=== PATIENT | male | born 1950 | race Caucasian/White ===

== ENCOUNTER 2021-03-27 01:03 | Emergency (ER) | payer OTHER, SELFPAY ==
[~2021-03-27] VITALS: Ht 170.2 cm; Wt 70.3 kg
[2021-03-27 01:14] VITALS: BP 188/76
--- NOTE | 2021-03-27 01:15 | NUR ---
biba to bed 3
--- NOTE | 2021-03-27 01:15 | NUR ---
PT BIBA FROM HOME FOR C/C GENERALIZED WEAKNESS AND HAS NOT EATEN IN 4 DAYS. PT REPORTS "I JUST DONT HAVE ENERGY TO EAT." REPORTS STRESS AT HOME. DENIES DEPRESSION. DENIES CP, SOB, FEVER, CHILLS, N/V/D. PT IS ABLE TO AMBULATE WITH ASSIST. A & O X4. MED HX: DENIES ALLERGIES: NKA
[2021-03-27] MEDS ORDERED: NACL 0.9% 1,000 ML IV ONE (01:25)
--- NOTE | 2021-03-27 01:25 | NUR ---
JARAD OF NARES COLLECTED AND GIVEN TO JEFF SENIOR ATTORNEY, AT BEDSIDE.
--- NOTE | 2021-03-27 01:30 | NUR ---
NOVEL COVID COLLECTED AND GIVEN TO SABINA AGUILAR TECH.
[2021-03-27 01:38] LABS: BASOPHILS # (AUTO) 0.1 K/uL (0.00-0.22); EOSINOPHILS # (AUTO) 0.2 K/uL (0-0.4); EOSINOPHILS % (AUTO) 1.5 % (0.0-4.0); HEMATOCRIT 50.6 % (36-52); HEMOGLOBIN 17.7 g/dL (12.0-18.0); LYMPHOCYTES # (AUTO) 2.8 K/uL (2.0-11.5); LYMPHOCYTES % (AUTO) 20.3 % (20.5-51.1); MEAN CORPUSCULAR HEMOGLOBIN 32 pg (27-31); MEAN CORPUSCULAR HGB CONC 35 g/dL (33-37); MEAN CORPUSCULAR VOLUME 90.6 fL (80-94); MONOCYTES % (AUTO) 7.2 % (1.7-9.3); NEUTROPHILS # (AUTO) 9.5 K/uL (1.8-7.7); PLATELET COUNT (AUTO) 190 K/uL (140-450); RED BLOOD CELL COUNT(AUTO) 5.59 MIL/uL (4.20-6.10); WHITE BLOOD COUNT (AUTO) 13.6 K/uL (4.8-10.8)
--- NOTE | 2021-03-27 01:45 | NUR ---
XRAY AT BEDSIDE.
--- NOTE | 2021-03-27 02:00 | NUR ---
JUICE PROVIDED FOR PATIENT. TOLERATED WELL. DENIES N/V. DENIES FOOD WHEN OFFERRED.
[2021-03-27 02:05] LABS: ALBUMIN 4.1 g/dL (3.4-5.0); ANION GAP 13.6 (8-16); ASPARTATE AMINOTRANSFERASE 20 U/L (15-37); CARBON DIOXIDE 26.9 mmol/L (21-32); CHLORIDE 104 mmol/L (98-107); CREATININE 1.3 mg/dL (0.6-1.3); GLUCOSE 90 mg/dL (74-106); LACTATE DEHYDROGENASE 127 U/L (85-227); POTASSIUM 3.5 mmol/L (3.5-5.1); SODIUM SERUM 141 mmol/L (136-145); TOTAL BILIRUBIN 2.8 mg/dL (0.0-1.0); UREA NITROGEN, BLOOD 23 mg/dL (7-18)
--- NOTE | 2021-03-27 03:25 | NUR ---
FOOD AND DRINK PROVIDED. PT TOLERATED 1/2 SANDWHICH, ONE JUICE BOX AND 4 OZ WATER.
--- NOTE | 2021-03-27 03:40 | NUR ---
PT REFUSING TO PROVIDE URINE SAMPLE AT THIS TIME, STATING "I DONT HAVE TO GO AND DONT NEED TO TRY." ERMD AWARE.
[2021-03-27 04:08] VITALS: BP 156/58
--- NOTE | 2021-03-27 04:10 | NUR ---
CALLED NUMBER ON FILE, PHONE IS DISCONNECTED. PT DOES NOT HAVE PHONE ON HIM AND DOES NOT KNOW FAMILY [facility] PHONE NUMBERS. CONFIRMED ADDRESS ON FILE TO BE CORRECT.
--- NOTE | 2021-03-27 04:29 | NUR ---
CONTACTED TERI, PTS NIECE. INFORMED OF DISCHARGE. WILL BE ON HER WAY RIGHT NOW.
--- NOTE | 2021-03-27 04:30 | NUR ---
TERI, ADRIANNE [phone].
--- NOTE | 2021-03-27 04:40 | NUR ---
Patient discharged with v/s stable. Written and verbal after care instructions given and explained. Patient verbalized understanding. Ambulatory with steady gait, HOWEVER PT PREFERS W.C. ASSIST. All questions addressed prior to discharge. Advised to follow up with PMD.
--- NOTE | 2021-03-27 07:21 | NUR ---
GONZALO DROPPED OFF PTS DRIVERS LICESE AND INSURANCE CARD. CALLED TERI, PTS NIECE, NO ANSWER. VOICEMAIL LEFT.
== END 2021-03-27 04:40 | disposition home or self-care (01) ==
LOC: MED 01:03
DX: R62.7 Adult failure to thrive (principal); Z20.822 Contact with and (suspected) exposure to COVID-19; R63.0 Anorexia; Z68.24 Body mass index [BMI] 24.0-24.9, adult
CPT/HCPCS: 71045; 80053; 83615; 84484; 85025; 87426; 93005; 96360; 99285; J7030; U0003; Q0092